=== PATIENT | female | born 1990 | race Caucasian/White ===

== ENCOUNTER 2023-08-20 15:04 | Observation (INO) | payer OTHER ==
[2023-08-20] MEDS ORDERED: SODIUM CHLORIDE 0.9% 500 ML INFUS.BAG IV ONE (15:51)
[2023-08-20 16:04] LABS: HEMATOCRIT 43.6 % (32.4-45.2); HEMOGLOBIN 14.2 G/dL (10.7-15.3); MCH 30.7 pg (25.7-33.7); MCHC 32.5 g/dl (32.0-36.0); MEAN CELL VOLUME 94.3 fl (80-96); MEAN PLT VOLUME 7.7 fl (7.5-11.1); PLATELET COUNT 296.7 10^3/uL (134-434); RBC 4.62 10^6/uL (3.60-5.2); RDW 14.5 % (11.6-15.6); WHITE BLOOD COUNT 7.5 10^3/uL (4.0-10.8)
[2023-08-20 16:35] LABS: ALBUMIN 4.6 g/dl (3.4-5.0); BILIRUBIN,TOTAL 0.4 mg/dl (0.2-1); CALCIUM 9.9 mg/dl (8.5-10.1); CREATININE 0.9 mg/dl (0.6-1.3); MAGNESIUM 1.8 mg/dL (1.8-2.4)
[2023-08-20 17:26] LABS: PLATELET ESTIMATE ADEQUATE
[2023-08-20] MEDS ORDERED: ASPIRIN 81 MG CHEWABLE TABLETS PO ONE (18:29)
[2023-08-20] MEDS ORDERED: ASPIRIN 81 MG CHEWABLE TABLETS ONE (18:35)
[2023-08-20] MEDS ORDERED: DOCUSATE SODIUM 100 MG CAPSULE (FP) PO PRN (21:05)
[2023-08-20] MEDS ORDERED: ACETAMINOPHEN 325 MG TABLET (FP) PO PRN (21:05)
[2023-08-20 21:51] VITALS: BMI 23.3
[2023-08-20 22:50] VITALS: RESP 18
[2023-08-21 08:35] LABS: HEMATOCRIT 40.2 % (32.4-45.2); INR 0.97 (0.83-1.09); MCH 30.6 pg (25.7-33.7); MCHC 32.3 g/dl (32.0-36.0); MEAN CELL VOLUME 94.5 fl (80-96); MEAN PLT VOLUME 7.8 fl (7.5-11.1); PLATELET COUNT 222.7 10^3/uL (134-434); PROTHROMBIN TIME (PATIENT) 11.3 SEC (9.7-13.0); RBC 4.25 10^6/uL (3.60-5.2); RDW 14.5 % (11.6-15.6); WHITE BLOOD COUNT 4.6 10^3/uL (4.0-10.8)
[2023-08-21 08:38] LABS: ACTIVATED PTT 29.3 SECONDS (25.2-36.5)
[2023-08-21 09:38] LABS: CALCIUM 9.1 mg/dl (8.5-10.1); CREATININE 0.7 mg/dl (0.6-1.3); MAGNESIUM 1.6 mg/dL (1.8-2.4); PHOSPHOROUS 4.4 (2.5-4.9); POTASSIUM 4.6 mmol/L (3.5-5.1)
[2023-08-21] MEDS ORDERED: ENOXAPARIN NA (PORCINE) 40 MG/0.4 ML DISP.SYRIN SQ SCH (10:00)
[2023-08-21] MEDS ORDERED: MAGNESIUM OXIDE 400 MG TABLET (FP) PO ONE (10:15)
[2023-08-21 14:26] VITALS: BP 115/83; PULSE 55; TEMP 98.1
== END 2023-08-21 17:05 | disposition home or self-care (01) ==
LOC: FER 15:04 → FM/S 19:46
PROVIDERS: ADMIT Internal Medicine; ATTEND Internal Medicine
PROC: 3E023GC Introduction of Other Therapeutic Substance into Muscle, Percutaneous Approach (ICD-10-PCS; principal; 2023-08-20)
PROC: 3E0337Z Introduction of Electrolytic and Water Balance Substance into Peripheral Vein, Percutaneous Approach (ICD-10-PCS; 2023-08-20)
DX: R07.89 Other chest pain (principal); R00.1 Bradycardia, unspecified; D64.9 Anemia, unspecified; F50.89 Other specified eating disorder; R77.8 Other specified abnormalities of plasma proteins; Z88.0 Allergy status to penicillin
CPT/HCPCS: 0241U-QW; 36415; 71046-TC-FY; 80048; 80053; 80061; 82550; 82553; 83036; 83735; 84100; 84443; 84484; 84703; 85025; 85027; 85379; 85610; 85730; 93005; 93306-TC; 96372; 99285-25; G0378